=== PATIENT | male | born 1970 | race Caucasian/White ===

== ENCOUNTER 2017-10-31 23:53 | Emergency (ER) | payer OTHER ==
[2017-11-01] VITALS: BP 134/75
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
== END 2017-11-01 01:46 | disposition home or self-care (01) ==
DX: S00.33XA Contusion of nose, initial encounter (principal); E11.9 Type 2 diabetes mellitus without complications; Y04.2XXA Assault by strike against or bumped into by another person, initial encounter; Y99.1 Military activity